=== PATIENT | female | born 1950 | race Caucasian/White ===

== ENCOUNTER 2022-03-13 07:00 | Outpatient (NON) | payer MEDICARE, SELFPAY | END 2022-03-13 07:01 | disposition home or self-care (01) | PROVIDERS: PCP Family Medicine; Visit Provider Internal Medicine Gastroenterology | DX: D12.4 Benign neoplasm of descending colon (principal) | CPT/HCPCS: 88305 ==

== ENCOUNTER 2022-03-13 07:22 | Day surgery (SDC) | payer MEDICARE, SELFPAY ==
[2022-03-02 11:00] VITALS: BMI 30.4
[2022-03-13 08:05] VITALS: BP 144/80; PULSE 92; RESP 20; TEMP 36.8; O2SAT 98
[2022-03-13] MEDS: LACTATED RINGERS 1,000 ML 150 ML IV CONT (08:10)
--- NOTE | 2022-03-13 09:25 | P.PNAN_ITS ---
Anes - Initial Pre Proc Eval Procedure: Operation Date: 03/13/22 09:30 Proposed Procedures p Diagnostic Colonoscopy - Eugene Whiting MD Date/Time: 03/13/22 09:25 Surgeon: Eugene Whiting MD Pre Op Diagnosis: Postive Cologard Patient Data Age: 71 Gender: F Height: 1.55 m Weight: 71.8 kg Last Vital Signs Temp 36.8 C 03/13/22 08:05 Pulse 92 03/13/22 08:05 Resp 20 03/13/22 08:05 BP 144/80 H 03/13/22 08:05 Pulse Ox 98 03/13/22 08:05 O2 Del Method Room Air 03/13/22 08:05 Allergies Allergy/AdvReac Type Severity Reaction Status Date / Time No Known Allergies Allergy Verified 03/13/22 08:06 Home Medications Medication Instructions Recorded Confirmed Type cholecalciferol (vitamin D3) 1,250 50,000 unit PO MONTHLY #6 caps 01/12/22 03/13/22 Rx mcg (50,000 unit) capsule Eye Multivitamin 1 cap PO MONTHLY MACULAR 03/02/22 03/13/22 History DEGENERATION Patient hx anesthesia problems: none Family hx anesthesia problems: other (father confusion) Results Review: All pre-operative results and documents have been reviewed as part of the pre- operative evaluation. [facility] Past Medical History Medical History Shingles Surgical History Surgical History History of cholecystectomy Family History Family History Father Family history of cardiovascular disease Grandparent Family history of cardiovascular disease Mother Family history of Parkinson's disease Social History Social History Smoking status: Never smoker Second hand tobacco smoke exposure: No Alcohol intake: never Substance use: never Substance use type: does not use Living arrangements: with family Spiritual care concerns: No Anes - Eval Final PreProcedure Day of Procedure 03/13/22 09:25 Patient weight: overweight Heart: regular rate and rhythm Lungs: clear to auscultation Airway: Mallampati scale class II Neurological: alert and oriented Last oral intake: >/= 8 hours ASA classification: II Emergent: no Anesthetic plan: proceed Anesthesia type and monitoring: general GIVS and standard monitoring Results Review: All pre-operative results and documents have been reviewed as part of the pre- operative evaluation. Informed Consent: The patient's anesthetic plan and its attendant risks and benefits were discussed with the patient/family/POA. Questions were solicited and answers provided to the satisfaction of the patient/family/POA.
--- NOTE | 2022-03-13 09:28 | PM.HPGS ---
History of Present Illness History of Present Illness Consent: Risks, benefits, and alternatives have been discussed and questions answered. Patient agrees to proceed with procedure. Chief complaint: Postive Cologard Narrative: Jory Aldrich is a 71 year old female here for first colonoscopy, had cologuard + Review of Systems Constitutional: Constitutional: Denies headache(s) and Denies weakness Eyes: Eyes: Denies blurry vision ENT: Reports Normal hearing present, Denies headache(s) and Denies neck pain Cardiovascular: Cardiovascular: Denies chest pain and Denies dyspnea Respiratory: Respiratory: Denies dyspnea Gastrointestinal: Gastrointestinal: Reports no additional gastrointestinal complaints Genitourinary: Genitourinary: Denies dysuria Musculoskeletal: Musculoskeletal: Denies neck pain Integumentary/Breasts: Skin/Breast: Denies dry skin Neurologic: Reports Normal hearing present, Denies headache(s) and Denies weakness Psychiatric: Psychiatric: Denies anxiety Endocrine: Endocrine: Denies change in body appearance Hematologic/Lymphatic: Hematologic/Lymphatic: Denies easy bleeding Allergic/Immunologic: Allergic/Immunologic: Denies urticaria PMFSH Past Medical History Medical History Shingles Surgical History Surgical History History of cholecystectomy Family History Family History Father Family history of cardiovascular disease Grandparent Family history of cardiovascular disease Mother Family history of Parkinson's disease Social History Social History Smoking status: Never smoker Second hand tobacco smoke exposure: No Alcohol intake: never Substance use: never Substance use type: does not use Living arrangements: with family Spiritual care concerns: No Meds Home Medications and Allergies Home Medications Medication Instructions Recorded Confirmed Type cholecalciferol (vitamin D3) 1,250 50,000 unit PO MONTHLY #6 caps 01/12/22 03/13/22 Rx mcg (50,000 unit) capsule Eye Multivitamin 1 cap PO MONTHLY MACULAR 03/02/22 03/13/22 History DEGENERATION Allergies Allergy/AdvReac Type Severity Reaction Status Date / Time No Known Allergies Allergy Verified 03/13/22 08:06 Vital Signs Vital Signs - 24 hr 03/13/22 08:05 Temperature 98.2 F Pulse Rate 92 Respiratory Rate 20 Blood Pressure 144/80 H Pulse Oximetry 98 Oxygen Delivery Room Air Exam Const: General: comfortable and no acute distress HENMT: Face/Nose/Sinus: Normal nares present Eyes: General: appearance normal, both eyes and all related structures Neck: Neck: no JVD Resp: Auscultation: clear to auscultation bilaterally Cardio: Rate: regular rate Rhythm: regular rhythm GI: Inspection: non-distended GI Palp: Yes Soft to palpation Skin: General skin exam: normal color Neuro: General: gait normal Speech: normal speech Extrem: General: normal to inspection Psych: Mental Status: mental status grossly normal Assessment and Plan Assessment and plan (1) Positive colorectal cancer screening using Cologuard test: Code(s): R19.5 - Other fecal abnormalities Status: Acute Assessment and Plan: colonoscopy
[2022-03-13 10:00] VITALS: BP 86/54; PULSE 67; RESP 16; O2SAT 94
[2022-03-13 10:10] VITALS: BP 100/63; PULSE 72; RESP 20; O2SAT 97
--- NOTE | 2022-03-13 10:12 | WPDANESPN ---
Anes - Prog Note Post-Op Date/Time: 03/13/22 10:12 Cardiovascular status: normal Respiratory status: normal Airway patency: baseline Mental status: baseline Post-Op hydration status: normal Vital Signs: Last Vital Signs Temp 36.8 C 03/13/22 08:05 Pulse 92 03/13/22 08:05 Resp 20 03/13/22 08:05 BP 144/80 H 03/13/22 08:05 Pulse Ox 98 03/13/22 08:05 O2 Del Method Room Air 03/13/22 08:05 Pain Score (VAS): 0 I/O: Intake & Output 03/12/22 03/13/22 03/13/22 23:59 07:59 15:59 Intake Total 300 Balance 300 Patient Feedback: Patient satisfied with anesthetic care.
[2022-03-13 10:20] VITALS: BP 129/83; PULSE 72; RESP 20; O2SAT 97
== END 2022-03-13 10:44 | disposition home or self-care (01) ==
PROVIDERS: PCP Family Medicine; Visit Provider Internal Medicine Gastroenterology
PROC: 0DJD8ZZ Inspection of Lower Intestinal Tract, Via Natural or Artificial Opening Endoscopic (ICD-10-PCS; CPT 45378; principal; 2022-03-13 09:30)
DX: R19.5 Other fecal abnormalities (principal)
CPT/HCPCS: 45385

== ENCOUNTER 2024-11-13 07:15 | Outpatient (CLI) | payer MEDICARE, SELFPAY ==
--- OUTSIDE RECORDS SUMMARY | 2024-11-13 07:23 | XMS_ITS | Clinical Summary ---
Author Organization [facility] Address [address] [address] Phone Care Team Providers Care Differential Tester Name Role Phone Nolan Winkler MD Primary Care Provider [phone] Allergies No known active allergies Medications Multiple Vitamins-Minera ls (EYE VITAMINS PO) Take by mouth daily. Eye promise Active valACYclovir (Valtrex) 1 GM Tablet Take 1,000 mg by mouth daily. 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 Gender Identity Not on file Sexual Orientation Not on file Last Filed Vital Signs Vital Sign Reading Time Taken Comments Blood Pressure 135/82 05/14/2023 9:55 AM REAMING MACHINE OPERATOR Pulse 65 05/14/2023 9:55 AM REAMING MACHINE OPERATOR Temperature 35.6 C (96.1 F) 05/14/2023 9:55 AM REAMING MACHINE OPERATOR Respiratory Rate 17 05/14/2023 9:55 AM REAMING MACHINE OPERATOR Oxygen Saturation 97% 05/14/2023 9:55 AM REAMING MACHINE OPERATOR Inhaled Oxygen Concentration - - Weight 72.6 kg (160 lb) 05/03/2023 11:12 AM REAMING MACHINE OPERATOR Height 154.9 cm (5' 1) 05/03/2023 11:12 AM REAMING MACHINE OPERATOR Body Mass Index 30.23 05/03/2023 11:12 AM REAMING MACHINE OPERATOR Plan of Treatment Health Maintenance Due Date Last Done Comments DEXA Bone Density 1950 Hepatitis C Virus (HCV) Screening 1950 Mammogram 1950 TdaP Immunization 1950 Cologuard 1997 Colonoscopy 1997 Colorectal Cancer Screening 1997 Immunochemical Fecal Occult Blood 1997 SARS-COV-2 Immunization ( season) 2023 01/16/2023, 03/03/2022, 10/18/2021, Additional history exists Influenza Immunization (#1) 12/01/202412/31, 01/24/2022, 01/11/2021, Additional history exists Respiratory Syncytial Virus (RSV) Immunization (Adult) (1 - 1-dose 75+ series) 09/19/2027 Zoster Immunization Completed 10/11/2018, 9 Pneumococcal Immunization (50+ years) Completed 01/24/2022, 10/11/2018 Hepatitis B Immunization Aged Out No longer eligible based on patient's age to complete this topic Human Papillomavirus (HPV) Immunization Aged Out No longer eligible based on patient's age to complete this topic Meningococcal Immunization (ACWY) Aged Out No longer eligible based on patient's age to complete this topic Rotavirus Immunization Aged Out No lo nger eligible based on patient's age to complete this topic Medical Devices Implanted Type Area Musical Engineer Device Identifier Shelf Expiration Date Model / Serial / Lot Technis 1-Piece Iol With Simplicity Delivery System Implanted:Qty: 1 on 05/14/2023 by Lynne Shaikh MD PhD at [facility] Left: Eye 09/25/2025 [id number] / [id number] / [id number] Insurance MEDICARE C [facility] [place] [id number] Care Teams Differential Tester Relationship Specialty Start Date End Date Nolan Winkler MD [address] [place] [address] PCP - General Family Medicine 04/18/23
[2024-11-13 18:44] LABS: Alanine Aminotransferase 29 U/L (6-35); Albumin Level 4.2 g/dL (3.5-5.1); Alkaline Phosphatase 36 U/L (38-126); Anion Gap 6 mmol/L (4-12); Aspartate Amino Transferase 52 U/L (14-36); Bilirubin,Total 0.5 mg/dL (0.2-1.3); Blood Urea Nitrogen 10 mg/dL (7-17); Calcium 9.7 mg/dL (8.4-10.2); Carbon Dioxide 27 mmol/L (22-30); Chloride 104 mmol/L (98-107); Cholesterol 235 mg/dL (0-200); Estimated Glomerular Filt Rate > 60; Glucose 102 mg/dL (65-110); HDL Direct 76 mg/dL; Potassium 4.4 mmol/L (3.4-5.0); Sodium 137 mmol/L (137-145); Total Protein 7.8 g/dL (6.3-8.2); Triglycerides 98 mg/dL (<150)
== END 2024-11-13 07:16 | disposition home or self-care (01) ==
LOC: ANHBWCLAB 07:21
PROVIDERS: PCP Nurse Practitioner Adult Health; Visit Provider Nurse Practitioner Adult Health
DX: E78.00 Pure hypercholesterolemia, unspecified (principal); R79.89 Other specified abnormal findings of blood chemistry; E55.9 Vitamin D deficiency, unspecified
CPT/HCPCS: 36415; 80053; 80061; 82306